=== PATIENT | female | born 1995 | race Caucasian/White ===

== ENCOUNTER 2019-04-02 09:41 | Inpatient (IN) | payer BC, OTHER ==
[~2019-04-02] VITALS: Ht 160 cm; Wt 90.7 kg
[~2019-04-02 09:41] MED LIST: IBUPROFEN800 MG PO; NORCO 5-325 TA1 EACH PO; PRENATAL GUMMI1 EACH PO; REGLAN10 MG PO
--- NOTE | 2019-04-02 15:21 | PR ---
[facility] [address] [facility] [place], [place] [address] Signed Progress Notes IP Datetime Report Generated by CPN: 04/02/2019 15:21 PROGRESS NOTES: [id number] Impression: Slow Progression of Labor Procedures: Intrauterine Pressure Catheter; Sterile Vag Exam Plan: Augmentation Informed Consent Obtain: Vaginal Delivery; Risks, Benefits and Alternatives Discussed VITAL SIGNS: [id number] Vital Signs: Reviewed; Within Normal Limits EXAM: [id number] Dilatation: 4.5 Effacement: 80 Station: -2 Uterine Contractions: q 1 to 4 min MEMBRANES: [id number] Membrane Status: Intact Comments: Slow progress. Suspect inadequate contractions. Will place IUPC and augment as needed. Fetus A: [id number] FHR Baseline: 125 Variability: Moderate 6-25bpm Accelerations: 15X15 Decelerations: None FHR Category: Category I Presentation: Vertex Comments on Fetus A: No evidence of metabolic acidosis Fetus B: [id number] Signing Physician: Myla Hairston MD Copies: ~ *Electronically Signed* 04/02/19 1521 MYLA HAIRSTON MD PATIENT NAME: WENDY RIVAS PROGRESS NOTE DATE OF : [birth year] PHYSICIAN: MYLA HAIRSTON MD RPT #: [id number] REPORT IS CONFIDENTIAL AND NOT TO BE RELEASED WITHOUT AUTHORIZATION
--- NOTE | 2019-04-02 16:38 | PR ---
[facility] [address] [facility] [place], [place] [address] Signed Progress Notes IP Datetime Report Generated by CPN: 04/02/2019 16:38 PROGRESS NOTES: [id number] Impression: Normal progression of labor Procedures: Sterile Vag Exam Plan: Continue present management Informed Consent Obtain: Vaginal Delivery; Risks, Benefits and Alternatives Discussed VITAL SIGNS: [id number] Vital Signs: Reviewed; Within Normal Limits EXAM: [id number] Dilatation: 8.0 Effacement: 90 Station: -1 Uterine Contractions: q 1 to 3 min MEMBRANES: [id number] Membrane Status: Intact Comments: Still comfortable. Progressing. Will continue. Fetus A: [id number] FHR Baseline: 130 Variability: Moderate 6-25bpm Accelerations: 10X10 Decelerations: Early FHR Category: Category I Presentation: Vertex Comments on Fetus A: status remains reassuring at this time Fetus B: [id number] Signing Physician: Myla Hairston MD Copies: ~ *Electronically Signed* 04/02/19 1638 MYLA HAIRSTON MD PATIENT NAME: WENDY RIVAS PROGRESS NOTE DATE OF : [birth year] PHYSICIAN: MYLA HAIRSTON MD RPT #: [id number] REPORT IS CONFIDENTIAL AND NOT TO BE RELEASED WITHOUT AUTHORIZATION
--- NOTE | 2019-04-03 10:38 | PR ---
[facility] [address] [facility] [place], [place] [address] Signed PP Progress Notes Datetime Report Generated by CPN: 04/03/2019 10:38 SUBJECTIVE: [id number] Pain: Within normal limits Vital Signs: [id number] Vital Signs: Reviewed; Within Normal Limits EXAM: [id number] Cardiovascular: Not Done Respiratory: Not Done Abdomen/Uterus: Abnormal Lochia: Normal Vulva/Perineum: Not Done Breasts: Not Done CVA Tenderness: Not Done Extremities: Normal Incision: Not Applicable Progress: Normal Exam Comments: Fundus firm, NT @ U-1. H/H 11.6/34.4, WBC 11.2, plat 242k IMPRESSION/PLAN/PROCEDURES: [id number] Impression: Normal progression Plan: Discharge Procedures: None Progress Notes: Doing well. She is ready for D/C home later today. Signing Physician: Myla Hairston MD Copies: ~ *Electronically Signed* 04/03/19 [facility] MYLA HAIRSTON MD PATIENT NAME: RIVAS,GETACHEWTOMER ESTRADA PROGRESS NOTE DATE OF : 93 PHYSICIAN: MYLA HAIRSTON MD RPT #: [id number] REPORT IS CONFIDENTIAL AND NOT TO BE RELEASED WITHOUT AUTHORIZATION
== END 2019-04-03 18:10 | disposition home or self-care (01) | DRG 807 ==
LOC: FBC 09:41
PROVIDERS: ADMIT Obstetrics & Gynecology
PROC: 10E0XZZ Delivery of Products of Conception, External Approach (ICD-10-PCS; principal; 2019-04-02)
PROC: 0KQM0ZZ Repair Perineum Muscle, Open Approach (ICD-10-PCS; 2019-04-02)
PROC: 10907ZC Drainage of Amniotic Fluid, Therapeutic from Products of Conception, Via Natural or Artificial Opening (ICD-10-PCS; 2019-04-02)
PROC: 10H07YZ Insertion of Other Device into Products of Conception, Via Natural or Artificial Opening (ICD-10-PCS; 2019-04-02)
PROC: 00HU33Z Insertion of Infusion Device into Spinal Canal, Percutaneous Approach (ICD-10-PCS; 2019-04-02)
PROC: 3E0R3BZ Introduction of Anesthetic Agent into Spinal Canal, Percutaneous Approach (ICD-10-PCS; 2019-04-02)
DX: O76 Abnormality in fetal heart rate and rhythm complicating labor and delivery (principal); Z37.0 Single live birth; O70.1 Second degree perineal laceration during delivery; Z3A.39 39 weeks gestation of pregnancy
CPT/HCPCS: 01960; 36415; 85027; J2590; J2795; J3010; J7120

== ENCOUNTER 2022-10-24 11:52 | Inpatient (IN) | payer OTHER ==
[~2022-10-24] VITALS: Ht 157.5 cm; Wt 97.5 kg
--- NOTE | 2022-10-25 07:38 | PR ---
[facility] [address] [facility] [place], [place] [address] Signed Progress Notes IP Datetime Report Generated by KELLY: 10/25/2022 07:38 PROGRESS NOTES: [id number] Impression: Normal Progression of Labor Procedures: Artificial ROM; Sterile Vag Exam Plan: Continue Present Management VITAL SIGNS: [id number] Vital Signs: Reviewed; Within Normal Limits EXAM: [id number] Dilatation: 1.0 Effacement: 50 Station: -2 Contractions: q 2 to 4 min MEMBRANES: [id number] Comments: Progressing well. Will continue. FETUS A: I8402961 FHR Baseline: 125 Variability: Moderate 6-25bpm Accelerations: 15X15 Decelerations: None FHR Category: Category I Presentation: Vertex Comments on Fetus A: No evidence of metabolic acidosis FETUS B: [id number] Signing Physician: Myla Hairston MD Copies: ~ *Electronically Signed* 10/25/22737 MYLA HAIRSTON MD PATIENT NAME: WENDY RIVAS SEAN PROGRESS NOTE DATE OF : 93 PHYSICIAN: MYLA HAIRSTON MD RPT #: [id number] REPORT IS CONFIDENTIAL AND NOT TO BE RELEASED WITHOUT AUTHORIZATION
--- NOTE | 2022-10-25 10:22 | PR ---
[facility] [address] [facility] [place], [place] [address] Signed Progress Notes IP Datetime Report Generated by KELLY: 10/25/2022 10:22 PROGRESS NOTES: [id number] Impression: Normal Progression of Labor Procedures: Intrauterine Pressure Catheter; Sterile Vag Exam Plan: Continue Present Management VITAL SIGNS: T4101011 Vital Signs: Reviewed; Within Normal Limits EXAM: [id number] Dilatation: 6.0 Effacement: 90 Station: -2 Contractions: q 2 to 4 min MEMBRANES: [id number] Comments: Comfortable after epidural but with development of lates. I suspect this is related to her BP drop. Strip appears improved after 5 mg ephedrine. Will continue close observation. FETUS A: N7700365 FHR Baseline: 125 Variability: Moderate 6-25bpm Accelerations: 15X15 Decelerations: None FHR Category: Category I Presentation: Vertex Comments on Fetus A: No evidence of metabolic acidosis FETUS B: [id number] Signing Physician: Myla Hairston MD Copies: ~ *Electronically Signed* 10/25/22 1022 MYLA HAIRSTON MD PATIENT NAME: WENDY RIVAS PROGRESS NOTE DATE OF : [birth year] PHYSICIAN: MYLA HAIRSTON MD RPT #: [id number] REPORT IS CONFIDENTIAL AND NOT TO BE RELEASED WITHOUT AUTHORIZATION
--- NOTE | 2022-10-25 11:00 | PR ---
[facility] [address] [facility] [place], [place] [address] Signed Progress Notes IP Datetime Report Generated by KELLY: 10/25/2022 11:00 PROGRESS NOTES: [id number] Impression: Normal Progression of Labor Procedures: Sterile Vag Exam Plan: Continue Present Management Other Plans: continue position changes VITAL SIGNS: [id number] Vital Signs: Reviewed; Within Normal Limits EXAM: [id number] Dilatation: 8.5 Effacement: 90 Station: -2 Contractions: q 2 to 4 min MEMBRANES: [id number] Comments: status overall reassuring but will continue close observation. She is progressing well. FETUS A: [id number] FHR Baseline: 125 Variability: Moderate 6-25bpm Accelerations: 15X15 Decelerations: None FHR Category: Category I Presentation: Vertex Comments on Fetus A: No evidence of metabolic acidosis FETUS B: [id number] Signing Physician: Myla Hairston MD Copies: ~ *Electronically Signed* 10/25/22 1100 MYLA HAIRSTON MD PATIENT NAME: WENDY RIVAS PROGRESS NOTE DATE OF : [birth year] PHYSICIAN: MYLA HAIRSTON MD RPT #: [id number] REPORT IS CONFIDENTIAL AND NOT TO BE RELEASED WITHOUT AUTHORIZATION
--- NOTE | 2022-10-25 11:10 | PR ---
[facility] [address] [facility] [place], [place] [address] Signed Progress Notes IP Datetime Report Generated by KELLY: 10/25/2022 11:10 PROGRESS NOTES: [id number] Impression: Reassuring Heart Rate Procedures: Sterile Vag Exam Other Procedures: subQ terb Plan: Continue Present Management Other Plans: decrease frequency of contractions, position changes VITAL SIGNS: A9002487 Vital Signs: Reviewed; Within Normal Limits EXAM: [id number] Dilatation: 8.5 Effacement: 90 Station: -2 Contractions: q 2 to 4 min MEMBRANES: [id number] Comments: FHTs overall reassuring with variability and accels but contractions very frequent. Will give subQ terb now which will hopefully allow fetus to recover. Will continue frequent position changes. FETUS A: [id number] FHR Baseline: 125 Variability: Moderate 6-25bpm Accelerations: 15X15 Decelerations: None FHR Category: Category I Presentation: Vertex Comments on Fetus A: No evidence of metabolic acidosis FETUS B: [id number] Signing Physician: Myla Hairston MD Copies: ~ *Electronically Signed* 10/25/22 1110 MYLA HAIRSTON MD PATIENT NAME: WENDY RIVAS PROGRESS NOTE DATE OF : [birth year] PHYSICIAN: MYLA HAIRSTON MD RPT #: [id number] REPORT IS CONFIDENTIAL AND NOT TO BE RELEASED WITHOUT AUTHORIZATION
--- NOTE | 2022-10-25 13:14 | PR ---
[facility] [address] [facility] [place], [place] [address] Signed Progress Notes IP Datetime Report Generated by KELLY: 10/25/2022 13:14 PROGRESS NOTES: [id number] Impression: Reassuring Heart Rate Procedures: Sterile Vag Exam Other Procedures: subQ terb Plan: Continue Present Management Other Plans: decrease frequency of contractions, position changes VITAL SIGNS: P6500791 Vital Signs: Reviewed; Within Normal Limits EXAM: [id number] Dilatation: 9.0 Effacement: 90 Station: -2 Contractions: q 2 to 4 min MEMBRANES: [id number] Comments: Attempted to push through remaining cervix without success so this was abandoned. Will try hands and knees to see if this will be helpful in allowing her to become completely dilated. FETUS A: [id number] FHR Baseline: 125 Variability: Moderate 6-25bpm Accelerations: 15X15 Decelerations: None FHR Category: Category I Presentation: Vertex Comments on Fetus A: No evidence of metabolic acidosis FETUS B: [id number] Signing Physician: Myla Hairston MD Copies: ~ *Electronically Signed* 10/25/22 1314 MYLA HAIRSTON MD PATIENT NAME: WENDY RIVAS PROGRESS NOTE DATE OF : [birth year] PHYSICIAN: MYLA HAIRSTON MD RPT #: [id number] REPORT IS CONFIDENTIAL AND NOT TO BE RELEASED WITHOUT AUTHORIZATION
--- NOTE | 2022-10-25 17:47 | NUR ---
10/25/22 174 Alexandra Alvarado 1731 PATIENT BACK TO [facility] ROOM 105. PATIENT IS ALERT AND ORIENTED. PATIENT BREATHING EQUAL AND UNLABORED. PATIENT OXYGEN SATURATIONS ABOVE 95% ON ROOM AIR. FUNDAL MASSAGE COMPLETE. SPINAL LEVEL CHECKED. SCD'S ON. IV SITE PATENT. LR WITH PIT RUNNING. PATIENT FEEDING AT THIS TIME. THIS RN AT BEDSIDE. 1740 PATIENT IS ALERT AND ORIENTED. BREATHING EQUAL AND UNLABORED. OXYGEN SATURATIONS ABOVE 95% ON ROOM AIR. SR ON TELE. PATIENT DENIES BEING NAUSEATED. BABY FEEDING. NO NEEDS AT THIS TIME. RN AT BEDSIDE. 4464 PATIENT IS ALERT AND ORIENTED. BREATHING EQUAL AND UNLABORED. OXYGEN SATURATIONS ABOVE 95% ON ROOM AIR. SR ON TELE. PATIENT DENIES BEING NAUSEATED AT THIS TIME. SCD'S ON. IVF WITH PIT INFUSING. NO FUTHER NEEDS AT THIS TIME.
--- NOTE | 2022-10-26 07:37 | PR ---
[facility] [address] [facility] [place] [address] Signed PP Progress Notes Datetime Report Generated by KELLY: 10/26/2022 07:37 SUBJECTIVE: [id number] Pain: Within Normal Limits Nausea/Vomiting: Denies Flatus: No Vital Signs: [id number] Vital Signs: Reviewed; Within Normal Limits Cardiovascular: Normal Respiratory: Normal Abdomen/Uterus: Abnormal Lochia: Normal Vulva/Perineum: Not Done Breasts: Not Done CVA Tenderness: Not Done Extremities: Normal Incision: Normal Progress: Normal Exam Comments: Abdomen with active BS. Fundus firm, NT @ U-2. H/H 8.3/24.7, WBC 12.4, plat 284k IMPRESSION/PLAN/PROCEDURES: [id number] Impression: Normal Progression Other Plans: ambulate, shower Progress Notes: Doing well. Will increase activity. Signing Physician: Myla Hairston MD Copies: ~ *Electronically Signed* 10/26/22 0737 MYLA HAIRSTON MD PATIENT NAME: WENDY RIVAS PROGRESS NOTE DATE OF : 93 PHYSICIAN: MYLA HAIRSTON MD RPT #: [id number] REPORT IS CONFIDENTIAL AND NOT TO BE RELEASED WITHOUT AUTHORIZATION
--- NOTE | 2022-10-27 10:42 | PR ---
[facility] [address] [facility] [place], [place] [address] Signed PP Progress Notes Datetime Report Generated by KELLY: 10/27/2022 10:42 SUBJECTIVE: [id number] Pain: Within Normal Limits Nausea/Vomiting: Denies Flatus: Yes Vital Signs: [id number] Vital Signs: Reviewed; Within Normal Limits EXAM: Met Cardiovascular: Normal Respiratory: Normal Abdomen/Uterus: Abnormal Lochia: Normal Vulva/Perineum: Not Done Breasts: Not Done CVA Tenderness: Not Done Extremities: Normal Incision: Normal Progress: Normal Exam Comments: Abdomen with active BS. Fundus firm, NT @ U-2. IMPRESSION/PLAN/PROCEDURES: [id number] Impression: Normal Progression Plan: Remove [place]; Discharge Other Plans: ambulate, shower Progress Notes: Doing well. She is ready for D/C. Signing Physician: Myla Hairston MD Copies: ~ *Electronically Signed* 10/27/22 1042 MYLA HAIRSTON MD PATIENT NAME: WENDY RIVAS SEAN PROGRESS NOTE DATE OF : 93 PHYSICIAN: MYLA HAIRSTON MD RPT #: [id number] REPORT IS CONFIDENTIAL AND NOT TO BE RELEASED WITHOUT AUTHORIZATION
--- NOTE | 2022-10-28 18:25 | OR ---
[facility] [address] [place], [place] [address] Signed DATE OF OPERATION: 10/25/2022 SURGEON: Myla Hairston MD AIR TWISTER WINDER: Ximena Whitley DO PREOPERATIVE DIAGNOSIS: Term , non-reassuring status, failure to descend, persistent OP. POSTOPERATIVE DIAGNOSIS: Term , non-reassuring status, failure to descend, persistent OP, delivered. PROCEDURE: Primary section with low segment transverse uterine incision. ANESTHESIA: Spinal. ESTIMATED BLOOD LOSS: 700 mL. DRAINS: Osborne catheter. INDICATIONS AND FINDINGS: The patient is a 27-year-old female, 5, para 2, partial mole 1, SAB 1, who was admitted at 39 and 1/7th weeks for elective induction secondary to LGA. She underwent a Cytotec induction. Artificial rupture of membranes was done when she was 2 cm dilated and she was apryl regularly. She progressed to complete but did have intermitent severe variables as well as late decels at times. status was reassuring overall unti the second stage. During pushing, however, the variable decels became deeper and more prolonged with some loss of variability. There was also no descent of the presenting part over the 1.5 hrs of pushing. It was felt most prudent to proceed with section. This was discussed with the patient and her and they consented to procedure. She was delivered of a little boy via lower segment transverse uterine incision from the ROP position with Apgars 9/9 and weight of 9 pounds 5 ounces. The uterus, tubes, ovaries, and placenta were otherwise normal. She did have atony, which responded to IV pitocin, massage, as well as a Cytotec suppository. Electronically Signed By: MYLA HAIRSTON MD 10/28/22 1825 PATIENT NAME: WENDY RIVAS OPERATIVE REPORT DATE OF : [birth year] REPORT #: [id number] PHYSICIAN: MYLA HAIRSTON MD PCP: JESS SKELTON MD REPORT IS CONFIDENTIAL AND NOT TO BE RELEASED WITHOUT AUTHORIZATION [facility] [address] [place], [place] [address] Signed DESCRIPTION OF PROCEDURE: The patient was prepped and draped in the supine position. A Pfannenstiel skin incision was made and carried down to the fascia. The incision was extended laterally. The inferior and superior fascial flaps were then created. The muscles were bluntly divided and the peritoneum opened bluntly and the incision extended bluntly. The Julio Cesar retractor was then placed. The uterine incision was made at the upper aspect of the peritoneal reflection. The incision was extended bluntly. The baby was delivered with the above findings and handed off to the pediatric staff in attendance. The placenta was removed manually and the uterus explored with a lap tape assuring no remaining fragments. The edges of the incision were identified and a small extension was noted on the patient's left side. The incision was closed beginning at the small extension initially with a running locking stitch of 0 Monocryl. A 2nd imbricating layer was also done. The lower edge of the incision was fairly thin and additional zjkvwy-pu-qebeg sutures were required because of some tearing in this area as well as along the sinus at the upper aspect of the incision. Following this, it was felt there was good hemostasis. The abdomen was copiously irrigated and inspected and Tisseel was also sprayed over the incision because of the difficulty assuring hemostasis. Following this, the Julio Cesar retractor was removed and the peritoneum was identified. This was closed with a running suture of 3-0 Vicryl. The muscles were reapproximated with interrupted sutures of 0 Vicryl. Bleeding points on the muscles were controlled with cautery. The fascia was then closed from each angle to the midline with a running suture of 0 Vicryl. The deep space was closed with interrupted sutures of 3-0 Vicryl after assuring hemostasis. The skin was closed with aleena. All sponge and needle counts were correct. She tolerated the procedure well and was taken to the recovery room in good condition. Myla Hairston MD PJW/MODL /[id number] cc: Ximena Whitley DO Electronically Signed By: MYLA HAIRSTON MD 10/28/22 1825 PATIENT NAME: WENDY RIVAS OPERATIVE REPORT DATE OF : [birth year] REPORT #: [id number] PHYSICIAN: MYLA HAIRSTON MD PCP: JESS SKELTON MD REPORT IS CONFIDENTIAL AND NOT TO BE RELEASED WITHOUT AUTHORIZATION [address] [address] Signed Copies: XIMENA WHITLEY DO ~ Electronically Signed By: MYLA HAIRSTON MD 10/28/22 1825 PATIENT NAME: WENDY RIVAS OPERATIVE REPORT DATE OF : [birth year] REPORT #: [id number] PHYSICIAN: MYLA HAIRSTON MD PCP: JESS SKELTON MD REPORT IS CONFIDENTIAL AND NOT TO BE RELEASED WITHOUT AUTHORIZATION
== END 2022-10-27 12:40 | disposition home or self-care (01) | DRG 788 ==
LOC: FBC 10-25 00:02
PROVIDERS: ADMIT Obstetrics & Gynecology; ATTEND Obstetrics & Gynecology
PROC: 10D00Z1 Extraction of Products of Conception, Low, Open Approach (ICD-10-PCS; principal; 2022-10-25 16:30)
DX: O76 Abnormality in fetal heart rate and rhythm complicating labor and delivery (principal); O32.4XX0 Maternal care for high head at term, not applicable or unspecified; Z37.0 Single live birth; Z67.20 Type B blood, Rh positive; Z20.822 Contact with and (suspected) exposure to COVID-19; Z3A.39 39 weeks gestation of pregnancy
CPT/HCPCS: 01961; 36415; 82565; 82570; 82803; 84156; 84450; 84520; 84550; 85027; 86850; 86900; 86901; 87502; A9270; J0456; J0690; J1650; J1885; J2001; J2274; J2590; J3010; J3105; U0003

== ENCOUNTER 2025-09-15 16:55 | Emergency (ER) | payer OTHER ==
[~2025-09-15] VITALS: Ht 152.4 cm; Wt 67.0 kg
--- NOTE | ~2025-09-15 | EKG ---
[facility] [address] [facility] [place], [place] [address] Draft EK completed, results pending confirmation PATIENT NAME: FARSHAD RIVASVanessa Electrocardiogram DATE OF : [birth year] PHYSICIAN: PRELIMINARY REPORT #: [id number] REPORT IS CONFIDENTIAL AND NOT TO BE RELEASED WITHOUT AUTHORIZATION
[2025-09-15] MEDS ORDERED: VITAMIN D350 MC3 PO (17:31)
[2025-09-15] MEDS ORDERED: VITAMIN B COMP1 EAC1 PO (17:31)
[2025-09-15 18:59] LABS: BASOPHILS 0.7 % (0.1-1.2); EOSINOPHILS 3.2 % (0.7-5.8); LYMPHOCYTES 39.1 % (19.3-51.7); MCH 27.6 PG (25.6-32.2); MCHC 33.6 g/dL (32.2-35.5); MCV 82.1 fL (79.4-94.8); MONOCYTES 4.9 % (4.7-12.5); NEUTROPHILS 51.8 % (34.0-71.1); RBC 4.24 M/uL (3.93-5.22)
[2025-09-15 19:34] LABS: BLOOD/HGB, URINE NEGATIVE (Negative); KETONE, URINE TRACE (Negative); LEUK ESTERASE, URINE SMALL (negative); NITRITE, URINE NEGATIVE (negative)
[2025-09-15 19:44] LABS: ALT (SGPT) 16 U/L (14-59); AST (SGOT) 8 U/L (15-37); GLOMERULAR FILTRATION RATE,EST 116 mL/min (>60); PROTEIN, TOTAL 7.2 g/dL (6.4-8.2); TSH, 3RD GENERATION 2.052 uIU/mL (0.358-3.740); UREA NITROGEN 14 mg/dL (7-18)
[2025-09-15 19:46] LABS: BACTERIA, URINE NONE SEEN /hpf (negative); CASTS, URINE NONE SEEN \\lpf; CRYSTALS, URINE NONE SEEN (0-1+); EPITHELIAL CELLS, URINE SQUAMOUS 2+ /lpf (0-1+)
[2025-09-15 19:47] LABS: REFLEX CULTURE, URINE No (No)
[2025-09-15 20:55] VITALS: BP 113/78
== END 2025-09-15 20:55 | disposition home or self-care (01) ==
LOC: ED 16:55
PROVIDERS: Emergency Medicine
DX: K21.9 Gastro-esophageal reflux disease without esophagitis (principal); Z79.899 Other long term (current) drug therapy
CPT/HCPCS: 36415; 71045; 80053; 81001; 84439; 84443; 84484; 84703; 85025; 93005; 93010; 99285-25